=== PATIENT | male | born 1965 | race Caucasian/White ===

== ENCOUNTER 2017-06-07 07:08 | Inpatient (IN) | payer OTHER ==
[~2017-06-07] VITALS: Ht 177.8 cm; Wt 78.9 kg
[2017-06-07] MEDS ORDERED: KETOROLAC 30 MG INJ IV STA (07:19)
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
[2017-06-07 07:44] LABS: WHITE BLOOD COUNT 13.5 10^3/ul (4.8-10.8)
[2017-06-07 07:45] LABS: BASOPHIL # 0.1 10^3/ul (0.0-0.1); BASOPHILS % 0.7 % (0.0-2.0); EOSINOPHILS # 0.2 10^3/ul (0.0-0.5); EOSINOPHILS % 1.3 % (0.0-7.0); HEMATOCRIT 44.4 % (42.0-52.0); LYMPHOCYTES # 4.2 10^3/ul (0.8-2.9); LYMPHOCYTES % 30.8 % (15.0-51.0); MEAN CORPUSCULAR HEMOGLOBIN 31.5 pg (29.0-33.0); MEAN CORPUSCULAR HGB CONC 33.8 g/dl (32.0-37.0); MEAN CORPUSCULAR VOLUME 93.3 fl (82.0-101.0); MEAN PLATELET VOLUME 10.4 fl (7.4-10.4); MONOCYTE # 0.8 10^3/ul (0.3-0.9); NEUTROPHIL # 8.2 10^3/ul (1.6-7.5); NEUTROPHILS % 60.7 % (39.0-77.0); PLATELET COUNT 294 10^3/UL (140-415); RED BLOOD COUNT 4.76 10^6/ul (4.70-6.10); RED CELL DISTRIBUTION WIDTH 13.5 % (11.5-14.5)
--- NOTE | 2017-06-07 07:46 | RADRPT ---
PROCEDURE: XR Chest. CLINICAL INDICATION: chest pain TECHNIQUE: Single frontal view of the chest was obtained COMPARISON: None FINDINGS: The heart and mediastinum are within normal limits. There are mild right lower lobe linear atelectatic changes. The lungs are otherwise clear. There is no pleural effusion or pneumothorax. RPTAT: AA IMPRESSION: No acute disease. Mild right lower lobe linear atelectatic changes. .Benito Xavier MD, MD Date Time Electronically viewed and signed by .Benito Xavier MD, MD on 06/07/2017 07:45 .S/
[2017-06-07 08:04] LABS: INR 0.87; PARTIAL THROMBOPLASTIN TIME 27.9 Sec (25.0-35.0); PROTIME 11.8 Sec (12.2-14.2); PT RATIO 0.9
[2017-06-07 08:09] LABS: CALCIUM 9.9 mg/dl (8.4-10.2); CREATININE 0.84 mg/dl (0.61-1.24); POTASSIUM 3.8 mmol/L (3.5-5.1)
[2017-06-07 08:19] LABS: TROPONIN-I 0.025 ng/ml (0.00-0.12)
[2017-06-07] MEDS ORDERED: NITROGLYCERIN 2% 1 GM OINT PKT TD STA (09:06)
[2017-06-07 09:29] VITALS: TEMP 98.7
[2017-06-07] MEDS ORDERED: ASPIRIN 81 MG TAB PO ONE (09:30)
[2017-06-07] MEDS ORDERED: ACETAMINOPHEN 325 MG TAB PO PRN ×2 (10:00→12:00)
[2017-06-07] MEDS ORDERED: ONDANSETRON 4 MG INJ IV PRN (10:00)
--- NOTE | 2017-06-07 11:44 | HP ---
Date/Time of Note Date/Time of Note DATE: 06/07/17 TIME: 11:44 Assessment/Plan VTE Prophylaxis VTE Prophylaxis Intervention: SCD's Lines/Catheters IV Catheter Type (from Nrs): Saline Lock Assessment/Plan Assessment/Plan 52 yo M with no known chronic medical conditions admitted for central chest discomfort x 1 day. D/dx includes ACS v MSK v other. Given tobacco abuse hx and pt's age, reasonable to exclude coronary etio. PLAN ACS r/o with serial troponins and EKGs stress test for AM ordered, may need to keep until Friday as I am not sure if these are done over the weekend cardiac diet, monitor BP closely lipids noted however per 10y ASCVD risk stratifiaction 6.4% therefore will defer statin at this time DVT prophx HPI/ROS Admit Date/Time Admit Date/Time Hx of Present Illness 52 yo F with no known chronic medical conditions presents with 1 day of chest discomfort. States it began this AM when he awoke. Associated with SOB. Also notes it is reproducible to firm palpation over his chest PMH/Family/Social Social History lives in the community Smoking Status: Current every day smoker Exam/Review of Systems Vital Signs Vitals Vital Signs Date Time Temp Pulse Resp B/P Pulse Ox O2 Delivery O2 Flow Rate FiO2 06/07/17 09:29 98.7 80 20 118/71 98 Room Air 06/07/17 07:24 2 Exam Exam nad, sitting up in bed EOMI MMM no mrg lung clear abd soft no rashes no le edema Labs Result Diagram: 06/07/1730 06/07/17 0730 HIRA ALDRICH MD Jun 07, 2017 11:44
[2017-06-07] MEDS ORDERED: morphine 2 MG INJ IV PRN (12:00)
[2017-06-07] MEDS ORDERED: NACL 0.9% 3 ML SYG IV SCH (12:00)
[2017-06-07] MEDS ORDERED: HYDROCODONE/APAP (5/325) TAB PO PRN (12:00)
[2017-06-07 12:21] LABS: CHOL/HDL RATIO 6.8 RATIO
[2017-06-07 12:30] VITALS: BMI 25.1
[2017-06-07 12:35] VITALS: BP 129/86; PULSE 72; RESP 18
[2017-06-07 15:23] LABS: CK-MB 83.2 ng/ml (0.0-2.4)
[2017-06-07 15:26] LABS: TROPONIN-I 3.27 ng/ml (0.00-0.12)
[2017-06-07 16:00] VITALS: BP 135/87; PULSE 71; RESP 18
[2017-06-07 16:11] VITALS: PULSE 75
[2017-06-07] MEDS ORDERED: CLOPIDOGREL 75 MG TAB PO ONE (17:00)
[2017-06-07] MEDS ORDERED: HEPARIN 1000 UNITS/ML 10 ML INJ IV PRN (17:00)
[2017-06-07] MEDS ORDERED: HEPARIN 1000 UNITS/ML 10 ML INJ IV ONE (17:00)
[2017-06-07 17:19] LABS: BASOPHIL # 0.1 10^3/ul (0.0-0.1); BASOPHILS % 0.8 % (0.0-2.0); EOSINOPHILS # 0.1 10^3/ul (0.0-0.5); EOSINOPHILS % 0.8 % (0.0-7.0); HEMATOCRIT 43.1 % (42.0-52.0); HEMOGLOBIN 15.1 g/dl (14.0-18.0); LYMPHOCYTES # 2.5 10^3/ul (0.8-2.9); LYMPHOCYTES % 19.5 % (15.0-51.0); MEAN CORPUSCULAR HEMOGLOBIN 32.2 pg (29.0-33.0); MEAN CORPUSCULAR VOLUME 91.9 fl (82.0-101.0); MEAN PLATELET VOLUME 10.2 fl (7.4-10.4); MONOCYTE # 0.8 10^3/ul (0.3-0.9); MONOCYTES % 6.3 % (0.0-11.0); NEUTROPHIL # 9.2 10^3/ul (1.6-7.5); NEUTROPHILS % 72.2 % (39.0-77.0); PLATELET COUNT 284 10^3/UL (140-415); RED BLOOD COUNT 4.69 10^6/ul (4.70-6.10); RED CELL DISTRIBUTION WIDTH 13.3 % (11.5-14.5); WHITE BLOOD COUNT 12.8 10^3/ul (4.8-10.8)
[2017-06-07 17:37] LABS: INR 0.88; PARTIAL THROMBOPLASTIN TIME 27.6 Sec (25.0-35.0); PROTIME 11.9 Sec (12.2-14.2); PT RATIO 0.9
[2017-06-07 18:03] LABS: TROPONIN-I 8.03 ng/ml (0.00-0.12)
[2017-06-07] MEDS: HEPARIN 25000 UNITS/250 ML 250 ML IV SCH (18:16)
[2017-06-07 19:48] VITALS: BP 148/83; RESP 20
[2017-06-07 20:08] VITALS: PULSE 70
[2017-06-07] MEDS ORDERED: ATORVASTATIN 20 MG TAB PO SCH (21:00)
[2017-06-07 21:05] LABS: TROPONIN-I 14.1 ng/ml (0.00-0.12)
--- NOTE | 2017-06-07 22:23 | RADRPT ---
Echocardiogram Report Patient Name: LEIGH SOOD Gender: Male Date: 1965 Study Date: 07-Jun-2017 Data Coordinator: Jyoti [facility] Location: 5539 Ref. Physician: HIRA ALDRICH Quality: Adequate Procedures: Transthoracic echocardiogram with complete 2D, M-Mode, and doppler examination. Indications: Chest Pain. 2D/M Mode Doppler Measurement Value Normal Ranges Measurement Value Normal Ranges LVIDd 2D 4.7 3.5 - 5.6 cm AV Peak Yonis 1.3 m/sec LVIDs 2D 3.1 2.1 - 4.1 cm AV Peak PG 7.0 mmHg FS 2D 33.7 % LVOT Peak Yonis 0.9 m/sec LVPWd 2D 1.2 0.6 - 1.1 cm LVOT Peak PG 3.0 mmHg IVSd 2D 1.1 0.6 - 1.1 cm MV E Peak Yonis 0.6 m/sec IVS/LVPW 2D 1.0 MV A Peak Yonis 0.6 m/sec AoR Diam 2D 3.1 2.0 - 3.7 cm MV E/A 1.0 LA/Ao 2D 1 0 - 1 MV Decel Time 225 msec EDV 2D 105.0 cm3 MV E/A 1.0 ESV 2D 30.7 cm3 TR Peak Yonis 2.2 m/sec LA Dimen 2D 3.2 2.3 - 4.0 cm TR Peak PG 19.0 mmHg RVSP 22.0 mmHg Findings Left Ventricle: Normal left ventricular systolic function. Normal left ventricular cavity size. Mild concentric left ventricular hypertrophy. Ejection fraction is visually estimated at 60 %. Abnormal Diastolic Function. Right Ventricle: Normal right ventricular size. Normal right ventricular systolic function. Left Atrium: The left atrium is normal in size. Right Atrium: The right atrium is normal in size. Mitral Valve: Mild mitral leaflet calcification. Mild mitral annular calcification. Trace mitral regurgitation. Aortic Valve: Normal appearance of the aortic valve. No significant aortic stenosis or insufficiency. Tricuspid Valve: Normal appearance of the tricuspid valve. Estimated peak PA systolic pressure 22 mmHg. There is trace tricuspid regurgitation. Pulmonic Valve: Pulmonic valve not well visualized. There is trace pulmonic regurgitation. Pericardium: Normal pericardium with no significant pericardial effusion. Aorta: Normal aortic root. IVC: Normal size and normal respiratory collapse consistent with normal right atrial pressure. Conclusions Normal left ventricular systolic function. Normal left ventricular cavity size. Mild concentric left ventricular hypertrophy. Ejection fraction is visually estimated at 60 %. Abnormal Diastolic Function. Normal right ventricular size. Normal right ventricular systolic function. The left atrium is normal in size. The right atrium is normal in size. No significant valvular stenosis or regurgitation seen. Normal pericardium with no significant pericardial effusion. Electronically Signed By: Dallin Moctezuma 07-Jun-2017 22:23:19 -0700 Patient Name: LEIGH SOOD Study Date: 07-Jun-2017 [id number]
[2017-06-07 23:09] LABS: TROPONIN-I 17.3 ng/ml (0.00-0.12)
[2017-06-08] VITALS (25 sets, daily range): BP systolic 103–149; BP diastolic 66–94; PULSE 61–95; RESP 14–33; Ht 177.8 cm; Wt 78.9 kg
[2017-06-08 08:16] LABS: BASOPHIL # 0.1 10^3/ul (0.0-0.1); BASOPHILS % 0.5 % (0.0-2.0); EOSINOPHILS # 0.1 10^3/ul (0.0-0.5); EOSINOPHILS % 0.4 % (0.0-7.0); HEMATOCRIT 43.9 % (42.0-52.0); HEMOGLOBIN 14.8 g/dl (14.0-18.0); LYMPHOCYTES # 2.1 10^3/ul (0.8-2.9); MEAN CORPUSCULAR HEMOGLOBIN 31.4 pg (29.0-33.0); MEAN CORPUSCULAR HGB CONC 33.7 g/dl (32.0-37.0); MEAN PLATELET VOLUME 10.6 fl (7.4-10.4); MONOCYTE # 0.8 10^3/ul (0.3-0.9); MONOCYTES % 4.9 % (0.0-11.0); NEUTROPHILS % 81.8 % (39.0-77.0); PLATELET COUNT 273 10^3/UL (140-415); RED BLOOD COUNT 4.72 10^6/ul (4.70-6.10); RED CELL DISTRIBUTION WIDTH 13.3 % (11.5-14.5); WHITE BLOOD COUNT 17.1 10^3/ul (4.8-10.8)
[2017-06-08 08:38] LABS: ALBUMIN/GLOBULIN RATIO 1.33; BILIRUBIN,INDIRECT 0.3 mg/dl (0-1.1); BILIRUBIN,TOTAL 0.3 mg/dl (0.2-1.3); CALCIUM 9.7 mg/dl (8.4-10.2); CREATININE 0.95 mg/dl (0.61-1.24)
[2017-06-08 08:56] LABS: TROPONIN-I 39.2 ng/ml (0.00-0.12)
[2017-06-08] MEDS ORDERED: ENOXAPARIN 40 MG/0.4 ML SYG SC SCH (09:00)
[2017-06-08] MEDS: ASPIRIN 81 MG TAB PO SCH (09:25)
[2017-06-08] MEDS: CLOPIDOGREL 75 MG TAB PO SCH (09:25)
[2017-06-08] MEDS: HEPARIN 25000 UNITS/250 ML 250 ML IV SCH (09:34)
[2017-06-08 12:06] LABS: TROPONIN-I 43.5 ng/ml (0.00-0.12)
--- NOTE | 2017-06-08 12:29 | CONS ---
Date/Time of Note Date/Time of Note DATE: 06/08/17 TIME: 12:23 Assessment/Plan Assessment/Plan Additional Assessment/Plan Non-ST elevation [place] Preserved ejection fraction Active tobacco use -Patient with intermittent chest pain with rising troponins. Currently on aspirin, Plavix and heparin therapy. Extensive discussion had with patient regarding cardiac catheterization including discussing benefits and risks and agrees to proceed. Further recommendations will be forthcoming as more information is available. Consultation Date/Type/Reason Admit Date/Time Type of Consultation: cv Reason for Consultation Elevated troponin and chest pain Hx of Present Illness This is a 52-year-old male with past medical history of dyslipidemia who presents with symptoms of chest pain since yesterday morning. Patient woke up in the morning with chest discomfort. It is at times sharp-like at times pressure-like. Occasional shortness of breath with symptoms. He denies any dizziness or lightheadedness, abdominal pain or nausea. Because of worsening symptoms he came to the emergency room. At the current time he has intermittent chest discomfort but denies current shortness of breath. Does improve with nitroglycerin. 12 point review of systems was performed with all pertinent positives and negatives mentioned above and all else is negative Past Medical History Medical History: high cholesterol Past Surgical History Hand surgery Social History Alcohol Use: occasionally Smoking Status: Current every day smoker Exam/Review of Systems Vital Signs Vitals Vital Signs Date Time Temp Pulse Resp B/P Pulse Ox O2 Delivery O2 Flow Rate FiO2 06/08/17 08:08 64 06/08/17 08:00 98.8 18 144/87 98 Room Air 06/07/17 07:24 2 Intake and Output 06/07/17 06/07/17 06/08/17 15:00 23:00 07:00 Intake Total 1100 ml 114 ml Balance 1100 ml 114 ml Exam No apparent distress Constitutional: alert, oriented, well developed Head: normocephalic Neck: supple Respiratory: clear to auscultation, normal air movement Cardiovascular: other (S1-S2 heard, no murmurs appreciated), regular rate and rhythm Gastrointestinal: bowel sounds, non-tender, soft Extremities: other (No edema) Results Result Diagram: 06/08/17 0738 06/08/17 0738 Results 24 hrs Laboratory Tests Test 06/07/17 13:55 06/07/17 17:08 06/07/17 20:00 06/07/17 22:05 Creatine Kinase 930 H 1326 H 2126 #H 2297 H Creatine Kinase Index 8.9 10.7 9.4 9.8 Creatinine Kinase MB (Mass) 83.20 H 142.00 H 199.00 H 224.00 H Troponin I 3.270 *H 8.030 *H 14.100 *H 17.300 *H White Blood Count 12.8 H Red Blood Count 4.69 L Hemoglobin 15.1 Hematocrit 43.1 Mean Corpuscular Volume 91.9 Mean Corpuscular Hemoglobin 32.2 Mean Corpuscular Hemoglobin Concent 35.0 Red Cell Distribution Width 13.3 Platelet Count 284 Mean Platelet Volume 10.2 Neutrophils % 72.2 Lymphocytes % 19.5 Monocytes % 6.3 Eosinophils % 0.8 Basophils % 0.8 Nucleated Red Blood Cells % 0.0 Neutrophils # 9.2 H Lymphocytes # 2.5 Monocytes # 0.8 Eosinophils # 0.1 Basophils # 0.1 Nucleated Red Blood Cells # 0.0 Prothrombin Time 11.9 L Prothrombin Time Ratio 0.9 INR International Normalized Ratio 0.88 Activated Partial Thromboplast Time 27.6 Test 06/08/17 00:52 06/08/17 07:38 06/08/17 10:55 Activated Partial Thromboplast Time 62.3 H 47.4 H White Blood Count 17.1 #H Red Blood Count 4.72 Hemoglobin 14.8 Hematocrit 43.9 Mean Corpuscular Volume 93.0 Mean Corpuscular Hemoglobin 31.4 Mean Corpuscular Hemoglobin Concent 33.7 Red Cell Distribution Width 13.3 Platelet Count 273 Mean Platelet Volume 10.6 H Neutrophils % 81.8 H Lymphocytes % 12.0 L Monocytes % 4.9 Eosinophils % 0.4 Basophils % 0.5 Nucleated Red Blood Cells % 0.0 Neutrophils # 14.0 H Lymphocytes # 2.1 Monocytes # 0.8 Eosinophils # 0.1 Basophils # 0.1 Nucleated Red Blood Cells # 0.0 Sodium Level 143 Potassium Level 4.0 Chloride Level 106 Carbon Dioxide Level 26 Anion Gap 15 Blood Urea Nitrogen 15 Creatinine 0.95 Glucose Level 106 Calcium Level 9.7 Total Bilirubin 0.3 Direct Bilirubin 0.00 Indirect Bilirubin 0.3 Aspartate Amino Transf (AST/SGOT) 411 H Alanine Aminotransferase (ALT/SGPT) 80 H Alkaline Phosphatase 84 Creatine Kinase 2464 H 2326 H Creatine Kinase Index 9.1 8.1 Creatinine Kinase MB (Mass) 225.00 H 188.00 H Troponin I 39.200 *H 43.500 *H Total Protein 7.0 Albumin 4.0 Globulin 3.00 Albumin/Globulin Ratio 1.33 Medications Medications Current Medications Acetaminophen (Tylenol Tab) 650 mg Q6H PRN PO PAIN LEVEL 1-3 OR FEVER; Start at 12:00 Acetaminophen/ Hydrocodone Bitart ([place] (5/325)) 1 tab Q6H PRN PO MODERATE PAIN LEVEL 4-6; Start 06/07/17 at 12:00 Morphine Sulfate (morphine) 2 mg Q4H PRN IV SEVERE PAIN LEVEL 7-10; Start 06/07 at 12:00 Atorvastatin Calcium (Lipitor) 20 mg HS PO Last administered on 06/07/17 20:47 ; Admin Dose 20 MG; Start 06/07/17 at 21:00 Aspirin (Aspirin) 81 mg DAILY PO Last administered on 06/08/17 09:25; Admin Dose 81 MG; Start 06/08/17 at 09:00 Clopidogrel Bisulfate (plaVIX) 75 mg DAILY PO Last administered on 06/08/17 09 :25; Admin Dose 75 MG; Start 06/08/17 at 09:00 Procedures Procedures ECG demonstrates sinus rhythm at 90 bpm, QRS 76 ms, nonspecific ST abnormalities Dallin Moctezuma DO Jun 08, 2017 12:29
[2017-06-08] MEDS ORDERED: LIDOCAINE 1% (MDV) 20 ML INJ ONE (13:11)
[2017-06-08] MEDS ORDERED: HEPARIN 1000 UNITS/ML 10 ML INJ ONE (13:11)
[2017-06-08] MEDS ORDERED: NITROGLYCERIN (IC) 100 MCG/ML INJ ONE (13:11)
[2017-06-08] MEDS ORDERED: FENTAnyl 50 MCG/ML VIAL ONE (13:12)
[2017-06-08] MEDS ORDERED: MIDAZOLAM 1 MG/ML 2 ML INJ ONE (13:12)
[2017-06-08] MEDS ORDERED: VERAPAMIL 5 MG INJ ONE (13:12)
[2017-06-08] MEDS ORDERED: SOD CHLORIDE 0.9% 1,000 ML IV SCH (14:53)
--- NOTE | 2017-06-08 15:03 | OPR ---
Date/Time of Note Date/Time of Note DATE: 06/08/17 TIME: 14:54 Operative Report Procedure Date: Jun 08, 2017 Preoperative Diagnosis Myocardial infarction Postoperative Diagnosis Myocardial infarction Obstructive coronary artery disease Operation Performed Left heart catheterization Right and left coronary angiogram Interpretation and supervision of right and left coronary angiogram Left ventricular pressure measurements PCI of mid circumflex with placement of a Synergy 3.0 x 16 mm drug-eluting stent Conscious sedation Estimated Blood Loss: minimal Complications: None Operative\Procedure Findings Hemodynamics LV pressure 146/-5 with EDP of 34 Aortic pressure 144/80 Coronary anatomy Left main is a large caliber vessel with no significant disease Circumflex is a medium caliber vessel with a mid 100% occlusion LAD is a medium caliber vessel with proximal 10% stenosis and distal 10% stenosis Ramus intermedius is a medium caliber vessel with no significant disease RCA is a medium caliber vessel and dominant with mid 20-30% stenosis Procedure Description Patient was brought to the [facility] after informed consent. Patient was prepped and draped as per protocol. Right radial access was obtained and a 5/6 Tongan sheath was placed in the right radial artery. 6 [place] catheter was used to engage the left main. Angiogram was performed. We next engage the RCA and antrum was performed. We next entered the left ventricle and pressure measurements were obtained as well as pullback. Given the occlusion in the circumflex, PCI was performed with the same setting. Angiomax was used for anticoagulation. A 6 [place]an VL 3.5 guide catheter was used to engage the left main. With significant difficulty, the lesion was crossed with a run through wire. It was predilated and stented with a 3.0 x 16 mm Synergy drug-eluting stent. This was postdilated with a 3.25 noncompliant balloon at high pressure. There was an excellent angiographic result with DORIS-3 flow with no evidence of dissection. All catheters and wires removed. There is no immediate complications. Recommendation Dual antiplatelet therapy for minimum of 1 year to maintain stent patency, smoking cessation. Discussed with patient via sports marketing internship and at bedside. Dallin Moctezuma DO Jun 08, 2017 15:03
--- NOTE | 2017-06-08 15:42 | PN ---
Date/Time of Note Date/Time of Note DATE: 06/08/17 TIME: 15:31 Assessment/Plan VTE Prophylaxis VTE Prophylaxis Intervention: SCD's Lines/Catheters IV Catheter Type (from Nrs): Saline Lock Assessment/Plan Assessment/Plan 52 yo M with pmhx tobacco abuse admitted for chest pain found to have NSTEMI [facility] with PCI to circ 7.30 PLAN a1c <6 post cath ICU monitoring as per protocol cont statin, cont DAPT bb started by cardiology service DVT prophx cardiac diet Subjective 24 Hr Interval Summary Free Text/Dictation (of note, I saw pt this AM before cath and subsequent transfer to ICU) Pt denies any chest pain. I discussed his uptrending troponin and likely cardiac cath to occur later today Exam/Review of Systems Vital Signs Vitals Vital Signs Date Time Temp Pulse Resp B/P Pulse Ox O2 Delivery O2 Flow Rate FiO2 06/08/17 15:16 98.4 114/76 100 Room Air 06/08/17 12:31 75 06/08/17 12:00 18 06/07/17 07:24 2 Intake and Output 06/07/17 06/07/17 06/08/17 15:00 23:00 07:00 Intake Total 1100 ml 114 ml Balance 1100 ml 114 ml Exam nad no mrg lungs clear abd soft no le edema uptrending cardiac markers noted Results Result Diagram: 06/08/17 0738 06/08/17 0738 Results 24 hrs Laboratory Tests Test 06/07/17 17:08 06/07/17 20:00 06/07/17 22:05 06/08/17 00:52 White Blood Count 12.8 H Red Blood Count 4.69 L Hemoglobin 15.1 Hematocrit 43.1 Mean Corpuscular Volume 91.9 Mean Corpuscular Hemoglobin 32.2 Mean Corpuscular Hemoglobin Concent 35.0 Red Cell Distribution Width 13.3 Platelet Count 284 Mean Platelet Volume 10.2 Neutrophils % 72.2 Lymphocytes % 19.5 Monocytes % 6.3 Eosinophils % 0.8 Basophils % 0.8 Nucleated Red Blood Cells % 0.0 Neutrophils # 9.2 H Lymphocytes # 2.5 Monocytes # 0.8 Eosinophils # 0.1 Basophils # 0.1 Nucleated Red Blood Cells # 0.0 Prothrombin Time 11.9 L Prothrombin Time Ratio 0.9 INR International Normalized Ratio 0.88 Activated Partial Thromboplast Time 27.6 62.3 H Creatine Kinase 1326 H 2126 #H 2297 H Creatine Kinase Index 10.7 9.4 9.8 Creatinine Kinase MB (Mass) 142.00 H 199.00 H 224.00 H Troponin I 8.030 *H 14.100 *H 17.300 *H Test 06/08/17 07:38 06/08/17 10:55 White Blood Count 17.1 #H Red Blood Count 4.72 Hemoglobin 14.8 Hematocrit 43.9 Mean Corpuscular Volume 93.0 Mean Corpuscular Hemoglobin 31.4 Mean Corpuscular Hemoglobin Concent 33.7 Red Cell Distribution Width 13.3 Platelet Count 273 Mean Platelet Volume 10.6 H Neutrophils % 81.8 H Lymphocytes % 12.0 L Monocytes % 4.9 Eosinophils % 0.4 Basophils % 0.5 Nucleated Red Blood Cells % 0.0 Neutrophils # 14.0 H Lymphocytes # 2.1 Monocytes # 0.8 Eosinophils # 0.1 Basophils # 0.1 Nucleated Red Blood Cells # 0.0 Activated Partial Thromboplast Time 47.4 H Sodium Level 143 Potassium Level 4.0 Chloride Level 106 Carbon Dioxide Level 26 Anion Gap 15 Blood Urea Nitrogen 15 Creatinine 0.95 Glucose Level 106 Calcium Level 9.7 Total Bilirubin 0.3 Direct Bilirubin 0.00 Indirect Bilirubin 0.3 Aspartate Amino Transf (AST/SGOT) 411 H Alanine Aminotransferase (ALT/SGPT) 80 H Alkaline Phosphatase 84 Creatine Kinase 2464 H 2326 H Creatine Kinase Index 9.1 8.1 Creatinine Kinase MB (Mass) 225.00 H 188.00 H Troponin I 39.200 *H 43.500 *H Total Protein 7.0 Albumin 4.0 Globulin 3.00 Albumin/Globulin Ratio 1.33 Medications Medications Current Medications Acetaminophen (Tylenol Tab) 650 mg Q6H PRN PO PAIN LEVEL 1-3 OR FEVER; Start at 12:00 Acetaminophen/ Hydrocodone Bitart ([place] (5/325)) 1 tab Q6H PRN PO MODERATE PAIN LEVEL 4-6; Start 06/07/17 at 12:00 Morphine Sulfate (morphine) 2 mg Q4H PRN IV SEVERE PAIN LEVEL 7-10; Start 06/07 at 12:00 Aspirin (Aspirin) 81 mg DAILY PO Last administered on 06/08/17t 09:25; Admin Dose 81 MG; Start 06/08/17 at 09:00 Clopidogrel Bisulfate (plaVIX) 75 mg DAILY PO Last administered on 06/08/17 09 :25; Admin Dose 75 MG; Start 06/08/17 at 09:00 Atorvastatin Calcium 80 mg 80 mg HS PO ; Start 06/08/17 at 21:00 Sodium Chloride (NS) 1,000 ml @ 75 mls/hr [id number] IV Last administered on 06/08 15:24; Admin Dose 75 MLS/HR; Start 06/08/17 at 14:53; Stop 06/08/17 at 19: 52 Metoprolol Tartrate (Lopressor) 12.5 mg BID PO ; Start 06/08/17 at 21:00 HIRA ALDRICH MD Jun 08, 2017 15:41
[2017-06-08] MEDS: METOPROLOL 25 MG TAB PO SCH (21:33)
[2017-06-08] MEDS: ATORVASTATIN 80 MG TAB PO SCH (21:33)
[2017-06-09] VITALS (20 sets, daily range): BP systolic 93–129; BP diastolic 41–83; PULSE 70–89; RESP 13–27
[2017-06-09] MEDS: CLOPIDOGREL 75 MG TAB PO SCH (09:06)
[2017-06-09] MEDS: ASPIRIN 81 MG TAB PO SCH (09:06)
[2017-06-09] MEDS: METOPROLOL 25 MG TAB PO SCH (09:07)
--- NOTE | 2017-06-09 09:37 | PN ---
Date/Time of Note Date/Time of Note DATE: 06/09/17 TIME: 09:35 Assessment/Plan VTE Prophylaxis VTE Prophylaxis Intervention: SCD's Lines/Catheters IV Catheter Type (from Nrsg): Peripheral IV Assessment/Plan Chief Complaint/Hosp Course Assessment/Plan: 52 yo M with pmhx tobacco abuse admitted for chest pain found to have NSTEMI [facility] with PCI to circ on 06/08/17. PLAN a1c <6 - monitor FS post cath ICU monitoring as per protocol cont statin, cont ASA, plavix continue bb started by cardiology service DVT prophx cardiac diet d/c home when cleared by CV team critical care time spent today = 45 min. Problems: Subjective 24 Hr Interval Summary Free Text/Dictation Pt denies cp. Asking when he can go home. Exam/Review of Systems Vital Signs Vitals Vital Signs Date Time Temp Pulse Resp B/P Pulse Ox O2 Delivery O2 Flow Rate FiO2 06/09/17 09:00 87 13 107/75 98 Room Air 06/09/17 08:00 98.6 06/07/17 07:24 2 Intake and Output 06/08/17 06/08/17 06/09/17 15:00 23:00 07:00 Intake Total 1040 ml 400 ml Output Total 870 ml 800 ml Balance 170 ml -400 ml Exam lying in bed, nad PERRL, EOMI no mrg lungs clear abd soft no le edema no focal deficits Results Result Diagram: 06/08/17 0706/08/17737 Results 24 hrs Laboratory Tests Test 06/08/17 10:55 06/08/17 15:40 Creatine Kinase 2326 H Creatine Kinase Index 8.1 Creatinine Kinase MB (Mass) 188.00 H Troponin I 43.500 *H Activated Partial Thromboplast Time 91.5 *H Medications Medications Current Medications Acetaminophen (Tylenol Tab) 650 mg Q6H PRN PO PAIN LEVEL 1-3 OR FEVER; Start at 12:00 Acetaminophen/ Hydrocodone Bitart ([place] (5/325)) 1 tab Q6H PRN PO MODERATE PAIN LEVEL 4-6; Start 06/07/17 at 12:00 Morphine Sulfate (morphine) 2 mg Q4H PRN IV SEVERE PAIN LEVEL 7-10; Start 06/07 at 12:00 Aspirin (Aspirin) 81 mg DAILY PO Last administered on 06/09/17 09:06; Admin Dose 81 MG; Start 06/08/17 at 09:00 Clopidogrel Bisulfate (plaVIX) 75 mg DAILY PO Last administered on 06/09/17 09 :06; Admin Dose 75 MG; Start 06/08/17 at 09:00 Atorvastatin Calcium (Lipitor) 80 mg HS PO Last administered on 06/08/17 21:33 ; Admin Dose 80 MG; Start 06/08/17 at 21:00 Metoprolol Tartrate (Lopressor) 12.5 mg BID PO Last administered on 06/09/17 09:07; Admin Dose 12.5 MG; Start 06/08/17 at 21:00 TUAN IVORY Jun 09, 2017 09:37
[2017-06-09] MEDS ORDERED: morphine 4 MG/ML VIAL IV PRN (14:00)
--- NOTE | 2017-06-09 16:00 | CONS ---
Date/Time of Note Date/Time of Note DATE: 06/09/17 TIME: 15:59 Assessment/Plan Assessment/Plan Additional Assessment/Plan Non-ST elevation [place] status post PCI with drug-eluting stenting to circumflex Preserved ejection fraction Active tobacco use -Patient doing well post PCI. Continue aspirin and Plavix therapy for minimum of 1 year to maintain stent patency, continue statin therapy, would decrease dose of beta-gabino. Given borderline blood pressure, no JAZ inhibitor. Okay to transfer to telemetry. If no arrhythmias over the next 24 hours and patient remains asymptomatic, okay to DC in the a.m. Consultation Date/Type/Reason Admit Date/Time Jun 07, 2017 at 09:44 Initial Consult Date Type of Consultation: cv 24 HR Interval Summary Free Text/Dictation Denies chest pain, shortness of breath or palpitations. Feeling better Exam/Review of Systems Vital Signs Vitals Vital Signs Date Time Temp Pulse Resp B/P Pulse Ox O2 Delivery O2 Flow Rate FiO2 06/09/17 12:00 74 06/09/17 12:00 98.3 24 97/58 95 Room Air 06/07/17 07:24 2 Intake and Output 06/08/17 06/08/17 06/09/17 15:00 23:00 07:00 Intake Total 1040 ml 400 ml Output Total 870 ml 800 ml Balance 170 ml -400 ml Exam No apparent distress Constitutional: alert, oriented Head: normocephalic Neck: supple Respiratory: clear to auscultation, normal air movement Cardiovascular: other (S1-S2 heard), regular rate and rhythm Gastrointestinal: bowel sounds, non-tender, soft Extremities: other (Right wrist is soft, +2 radial pulse, no hematoma) Results Result Diagram: 06/08/17 0738 06/08/17 0738 Medications Medications Current Medications Acetaminophen (Tylenol Tab) 650 mg Q6H PRN PO PAIN LEVEL 1-3 OR FEVER; Start at 12:00 Acetaminophen/ Hydrocodone Bitart ([place] (5/325)) 1 tab Q6H PRN PO MODERATE PAIN LEVEL 4-6; Start 06/07/17 at 12:00 Aspirin (Aspirin) 81 mg DAILY PO Last administered on 06/09/17t 09:06; Admin Dose 81 MG; Start 06/08/17 at 09:00 Clopidogrel Bisulfate (plaVIX) 75 mg DAILY PO Last administered on 06/09/17 09 :06; Admin Dose 75 MG; Start 06/08/17 at 09:00 Atorvastatin Calcium (Lipitor) 80 mg HS PO Last administered on 06/08/17 21:33 ; Admin Dose 80 MG; Start 06/08/17 at 21:00 Metoprolol Tartrate (Lopressor) 12.5 mg BID PO Last administered on 06/09/17 09:07; Admin Dose 12.5 MG; Start 06/08/17 at 21:00 Morphine Sulfate (morphine) 2 mg Q4H PRN IV SEVERE PAIN LEVEL 7-10; Start 06/09 at 14:00 Dallin Moctezuma DO Jun 09, 2017 16:00
--- NOTE | 2017-06-09 19:30 | RADRPT ---
Vent Rate: 82 bpm RR Interval: 0 msec RI Interval: 160 msec QRS Duration: 92 msec QT Interval: 384 msec QTC Interval: 448 msec P-R-T [place]: 60 - 7 - 41 degrees Normal sinus rhythm Incomplete right bundle branch block Borderline ECG Electronically Signed By: Esau Alvarado [id number]
--- NOTE | 2017-06-09 19:31 | RADRPT ---
Vent Rate: 66 bpm RR Interval: 0 msec MT Interval: 156 msec QRS Duration: 84 msec QT Interval: 400 msec QTC Interval: 419 msec P-R-T [place]: 60 - 74 - 65 degrees Normal sinus rhythm Normal ECG Electronically Signed By: Esau Alvarado [id number]
--- NOTE | 2017-06-09 19:31 | RADRPT ---
Vent Rate: 64 bpm RR Interval: 0 msec PA Interval: 156 msec QRS Duration: 90 msec QT Interval: 400 msec QTC Interval: 412 msec P-R-T [place]: 66 - 90 - 69 degrees Normal sinus rhythm Rightward axis Borderline ECG Electronically Signed By: Esau Alvarado [id number]
--- NOTE | 2017-06-09 19:31 | RADRPT ---
Vent Rate: 71 bpm RR Interval: 0 msec MD Interval: 152 msec QRS Duration: 88 msec QT Interval: 394 msec QTC Interval: 428 msec P-R-T [place]: 70 - 110 - 76 degrees Normal sinus rhythm Possible Right ventricular hypertrophy Abnormal ECG Electronically Signed By: Esau Alvarado [id number]
[2017-06-09] MEDS: ATORVASTATIN 80 MG TAB PO SCH (21:49)
[2017-06-10] VITALS (9 sets, daily range): BP systolic 97–105; BP diastolic 61–71; PULSE 70–87; RESP 18
[2017-06-10] MEDS: ASPIRIN 81 MG TAB PO SCH (08:38)
[2017-06-10] MEDS: CLOPIDOGREL 75 MG TAB PO SCH (08:38)
[2017-06-10] MEDS ORDERED: METOPROLOL (XL) 25 MG TAB PO SCH (09:00)
--- NOTE | 2017-06-10 10:17 | PDOCDIS ---
Discharge Instructions CONDITION Patient Condition: Stable HOME CARE INSTRUCTIONS: Special Diet: Cardiac Diet ACTIVITY: Activity Restrictions: Slowly Increase Activity FOLLOW UP/APPOINTMENTS Follow-up Plan Please take your medications as prescribed. Please follow-up with your primary doctor and cardiology doctor in the clinic in the next 1-2 weeks. TUAN IVORY Jun 10, 2017 10:17
[2017-06-10] MEDS ORDERED: METO25TA7 PO (10:18)
[2017-06-10] MEDS ORDERED: ATOR80TA75 PO (10:18)
[2017-06-10] MEDS ORDERED: CLOP75TA28 PO (10:18)
[2017-06-10] MEDS ORDERED: ASPI81TA3 PO (10:18)
--- NOTE | 2017-06-10 10:22 | DS ---
Date/Time of Note Date/Time of Note DATE: 06/10/17 TIME: 10:20 Discharge Summary Admission/Discharge Info Admit Date/Time Jun 07, 2017 at 09:44 Discharge Date/Time Patient Condition: Stable Hospital Course 52 yo M with no known chronic medical conditions presents with 1 day of chest discomfort. States it began when he awoke. Associated with SOB. Also notes it is reproducible to firm palpation over his chest. He was admitted to the hospital, seen by cardiology team. He underwent left heart catheterization because he was found with non-ST elevation [place]. He had PCI with drug-eluting stenting placement to circumflex artery. Patient tolerated the procedure well, afterwards he was counseled on smoking cessation, his vital signs are stable, he was able to ambulate and tolerated p.o. diet. He was educated about the importance of taking his cardiac medications, specifically his aspirin and Plavix. He will be discharged home today in improved condition. See below for discharge medication list. Home Meds Active Scripts Clopidogrel Bisulfate (Clopidogrel) 75 Mg Tablet, 75 MG PO DAILY, #30 TAB 8 Refills Prov:TUAN IVORY 06/10/17 Aspirin (Aspirin) 81 Mg Chew, 81 MG PO DAILY, #30 TAB 3 Refills Prov:TUAN IVORY. 06/10/17 Atorvastatin* (Atorvastatin*) 80 Mg Tablet, 80 MG PO HS, #30 TAB 4 Refills Prov:TUAN IVORY. 06/10/17 Metoprolol Succinate* (Toprol XL*) 25 Mg Tab.sr.24h, 12.5 MG PO DAILY, #60 4 Refills Prov:TUAN IVORY 06/10/17 Primary Care Provider [facility] Time spent on discharge: > 30 minutes TUAN IVORY Jun 10, 2017 10:22
--- NOTE | 2017-06-10 14:16 | CONS ---
Date/Time of Note Date/Time of Note DATE: 06/10/17 TIME: 14:15 Assessment/Plan Assessment/Plan Additional Assessment/Plan Non-ST elevation [place] status post PCI with drug-eluting stenting to circumflex Preserved ejection fraction Active tobacco use -Patient doing well post PCI. Continue aspirin and Plavix therapy for minimum of 1 year to maintain stent patency, continue statin therapy, Given borderline blood pressure, no JAZ inhibitor. DC planning Consultation Date/Type/Reason Admit Date/Time Jun 07, 2017 at 09:44 Type of Consultation: cv 24 HR Interval Summary Free Text/Dictation Patient seen and examined, denies chest pain, palpitations or dizziness Exam/Review of Systems Vital Signs Vitals Vital Signs Date Time Temp Pulse Resp B/P Pulse Ox O2 Delivery O2 Flow Rate FiO2 06/10/17 12:28 70 06/10/17 11:06 98.1 18 99/61 98 06/09/17 16:00 Room Air 06/07/17 07:24 2 Intake and Output 06/09/17 06/09/17 06/10/17 15:00 23:00 07:00 Intake Total 360 ml 720 ml 400 ml Output Total 500 ml Balance -140 ml 720 ml 400 ml Exam No apparent distress Constitutional: alert, oriented Head: normocephalic Neck: supple Respiratory: clear to auscultation, normal air movement Cardiovascular: other (S1-S2 heard), regular rate and rhythm Gastrointestinal: bowel sounds, non-tender, soft Extremities: other (No edema) Results Result Diagram: 06/08/17 0738 06/08/17 0738 Dallin Moctezuma DO Jun 10, 2017 14:16
== END 2017-06-10 14:00 | disposition home or self-care (01) | DRG 247 ==
LOC: E/R 07:08 → MS4 09:44 → ICU 06-08 15:10 → TEL 06-09 17:07
PROVIDERS: ADMIT Internal Medicine; ATTEND Internal Medicine
PROC: B211YZZ Fluoroscopy of Multiple Coronary Arteries using Other Contrast (ICD-10-PCS; 2017-06-08)
PROC: B215YZZ Fluoroscopy of Left Heart using Other Contrast (ICD-10-PCS; 2017-06-08)
PROC: 027034Z Dilation of Coronary Artery, One Artery with Drug-eluting Intraluminal Device, Percutaneous Approach (ICD-10-PCS; principal; 2017-06-08 13:30)
PROC: 4A023N7 Measurement of Cardiac Sampling and Pressure, Left Heart, Percutaneous Approach (ICD-10-PCS; 2017-06-08 13:30)
DX: I21.4 Non-ST elevation (NSTEMI) myocardial infarction (principal); F17.210 Nicotine dependence, cigarettes, uncomplicated; I25.10 Atherosclerotic heart disease of native coronary artery without angina pectoris; E78.00 Pure hypercholesterolemia, unspecified
CPT/HCPCS: 36415; 71010; 80048; 80053; 80061; 82550; 82553; 83036; 84484; 85025; 85610; 85730; 87081; 93005; 93306; 93458; 96374; C1725; C1769; C1874; C1887; C9600; J1644; J1885; J2250; J3010; J7030